=== PATIENT | female | born 1955 | race American Indian/Alaskan Native ===

== ENCOUNTER 2021-08-16 09:52 | Outpatient (CLI) | payer OTHER ==
--- NOTE | 2021-08-16 18:09 | Mammography Report ---
DIGITAL SCREENING MAMMOGRAM WITH CAD, 08/16/2021 CLINICAL INFORMATION / INDICATION: Routine screening mammography. TECHNIQUE: Digital bilateral 2D mammography was obtained in the craniocaudal and mediolateral obliqu e projections. This examination was interpreted with the benefit of Computer-Aided Detection analysis . COMPARISON: None available FINDINGS: Breast Density: The breasts are heterogeneously dense, which may obscure small masses. No dominant mass, suspicious calcifications, or architectural distortion in the right breast. There are 2 small focal asymmetries in the upper outer quadrant of the left breast. Further evaluatio n with spot compression views and possibly left breast ultrasound is recommended. There are a few daksha ign calcifications scattered throughout the left breast. IMPRESSION: There are 2 small focal asymmetries in the upper outer quadrant, left breast. Please eval uate with spot compression imaging and possibly left breast ultrasound. Follow up recommendation: Special View: Spot BI-RADS Category 0: Incomplete. Needs additional imaging evaluation and/or prior mammograms for yasmin rison. A "normal" or negative report should not discourage follow up or biopsy of a clinically significant f inding. A written summary of these findings will be mailed to the patient. The patient will be entered into a mammography reporting system which will generate a reminder letter for the patient's next appointmen t at the appropriate interval. The [employer] recommends yearly mammograms starting at age 40 and continuing as l madelyn as a woman is in good health. Breast MRI is recommended for women with an approximate 20-25% or greater lifetime risk of breast cancer, including women with a strong family history of breast or ova bakari cancer or who have been treated for Hodgkin's disease. Signer Name: Shelley Leal MD Signed: 08/16/2021 6:04 PM Workstation Name: [email or web address]
== END 2021-08-16 09:53 | disposition home or self-care (01) ==
LOC: MAMMO 09:52
PROVIDERS: ATTEND Family Medicine
DX: Z12.31 Encounter for screening mammogram for malignant neoplasm of breast (principal); N64.89 Other specified disorders of breast
CPT/HCPCS: 77067

== ENCOUNTER 2021-10-07 09:13 | Outpatient (CLI) | payer OTHER ==
--- NOTE | 2021-10-07 10:41 | Mammography Report ---
LEFT DIGITAL DIAGNOSTIC MAMMOGRAM WITH CAD , 10/07/2021 LEFT LIMITED BREAST ULTRASOUND CLINICAL INFORMATION / INDICATION: ABNORMAL MAMMOGRAM TECHNIQUE: Digital left mammographic imaging was performed. Spot compression views were obtained. Hawkins ited ultrasound was performed. This examination was interpreted with the benefit of Computer-Aided De tection (CAD) analysis. COMPARISON: Prior screening mammogram 08/16/2021 FINDINGS: Breast Density: The breasts are heterogeneously dense, which may obscure small masses. MAMMOGRAPHIC FINDINGS: No dominant mass, suspicious calcifications, or architectural distortion in th e left breast. Recently noted small focal asymmetries in the upper outer quadrant resolve with spot c ompression. Ultrasound will be performed to ensure no underlying mass is present. ULTRASOUND FINDINGS: Targeted ultrasound evaluation was performed of the area of interest. Sonograp hic evaluation of the upper outer quadrant did not reveal any sonographic abnormality. There is no ma ss, cyst, or suspicious area of shadowing identified. IMPRESSION: No mammographic or sonographic evidence of malignancy. Follow up recommendation: Routine yearly BI-RADS Category 2: Benign. A "normal" or negative report should not discourage follow up or biopsy of a clinically significant f inding. A written summary of these findings will be mailed to the patient. The patient will be entered into a mammography reporting system which will generate a reminder letter for the patient's next appointmen t at the appropriate interval. According to the [employer], yearly mammograms are recommended starting at age 40 and continuing as long as a woman is in good health. Breast MRI is recommended for women with an jalen roximately 20-25% or greater lifetime risk of breast cancer, including women with a strong family his tory of breast or ovarian cancer and women who have been treated for Hodgkin's disease. Signer Name: Shelley Leal MD Signed: 10/07/2021 10:37 AM Workstation Name: [email or web address]
== END 2021-10-07 09:14 | disposition home or self-care (01) ==
LOC: MAMMO 09:13
PROVIDERS: ATTEND Family Medicine
DX: R92.8 Other abnormal and inconclusive findings on diagnostic imaging of breast (principal)